=== PATIENT | female | born 2000 | race Hispanic/Latino ===

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

== ENCOUNTER → 2020-04-16 | Emergency (ER) | payer OTHER ==
[~2020-04-16] VITALS: Ht 154.9 cm; Wt 61.2 kg
[~2020-04-16] MED LIST: B&O 60MG R/S 60 MG SUPP PR ONE; CEPHALEXIN500 MG PO; IOPAMIDOL 300MG/ML 50ML INFUS..BTL IV ONE; PIPER-TAZ 3.375 GM 50 ML ONE
== END | disposition home or self-care (01) ==
LOC: FSED 23:29
DX: O26.92 Pregnancy related conditions, unspecified, second trimester (principal); R10.30 Lower abdominal pain, unspecified; M54.5 Low back pain; M79.18 Myalgia, other site; J45.909 Unspecified asthma, uncomplicated
CPT/HCPCS: 99282; J2543